=== PATIENT | male | born 1955 | race Two or more races ===

== ENCOUNTER 2017-06-24 14:24 | Inpatient (IN) | payer OTHER ==
[~2017-06-24] VITALS: Ht 177.8 cm; Wt 86.2 kg
== END 2017-07-05 16:53 | disposition home or self-care (01) | DRG 331 ==
LOC: EDUNIT# 06-27 13:15 → O/R 07-03 06:26 → SURG 07-03 11:00 → SURH 07-03 13:19 → SURG 07-03 16:36 → SURH 07-04 16:55 → SURG 07-04 17:36
PROVIDERS: Colon & Rectal Surgery
PROC: 0DTN4ZZ Resection of Sigmoid Colon, Percutaneous Endoscopic Approach (ICD-10-PCS; 2017-07-03)
PROC: 07TC4ZZ Resection of Pelvis Lymphatic, Percutaneous Endoscopic Approach (ICD-10-PCS; 2017-07-03)
PROC: 0DJD8ZZ Inspection of Lower Intestinal Tract, Via Natural or Artificial Opening Endoscopic (ICD-10-PCS; 2017-07-03)
PROC: 0DTP4ZZ Resection of Rectum, Percutaneous Endoscopic Approach (ICD-10-PCS; principal; 2017-07-03 11:00)
DX: C19 Malignant neoplasm of rectosigmoid junction (principal); Z85.048 Personal history of other malignant neoplasm of rectum, rectosigmoid junction, and anus

== ENCOUNTER 2017-07-02 08:55 | Day surgery (SDC) | payer OTHER | END 2017-07-02 14:30 | disposition home or self-care (01) | LOC: AMB-ENDOS 08:55 | DX: K64.1 Second degree hemorrhoids (principal); Z85.038 Personal history of other malignant neoplasm of large intestine ==

== ENCOUNTER 2018-08-15 05:30 | Day surgery (SDC) | payer OTHER | END 2018-08-15 09:00 | disposition home or self-care (01) | LOC: AMB-ENDOS 05:30 | DX: D12.4 Benign neoplasm of descending colon (principal); K64.2 Third degree hemorrhoids ==

== ENCOUNTER 2019-10-02 10:13 | Day surgery (SDC) | payer OTHER | END 2019-10-02 15:45 | disposition home or self-care (01) | LOC: AMB-ENDOS 10:13 | PROVIDERS: ATTEND Colon & Rectal Surgery | DX: K62.89 Other specified diseases of anus and rectum (principal) ==

== ENCOUNTER 2019-10-11 16:06 | Inpatient (IN) | payer OTHER ==
[~2019-10-11] VITALS: Ht 177.8 cm; Wt 90.7 kg
[2019-10-11] MEDS ORDERED: NORVASC2.5 M1 (16:18)
[2019-10-11] MEDS ORDERED: TENORMIN25 MG (16:18)
[2019-10-11] MEDS ORDERED: COZAAR100 MG (16:18)
[2019-10-11] MEDS ORDERED: PRILOSEC OTC20 MG (16:19)
[2019-10-11] MEDS ORDERED: SYMBICORT 16010.2 GM (16:19)
[2019-10-11] MEDS ORDERED: SINGULAIR 10MG10 MG (16:19)
--- NOTE | 2019-10-11 16:20 | NUR ---
SE RECIBE PTE ALERTA Y ORIENTADO X3,REFIERE TENER DOLOR ABDOMINAL,CONSTIPACION LLEVA SIN EVACUAR DESDE EL JUEVES,EL CRAIG [address] DE KRYS SE HICIERON JALYN COLONCOSPIA.
--- NOTE | 2019-10-11 17:45 | NUR ---
SE ORIENTA AL PACIENTE SOBRE EL TX. SE EXTRAEN MUESTRAS DE KEEGAN BAJO MEDIDAS ASEPTICAS SE ROTULAN Y ENVIAN AL LABORATORIO. SE ENTREGA FRASCO DE UA ROTULADO Y SE ORIENTA A COLECTAR LA MUESTRA DE FORMA CORRECTA. SE ENTREGA CONTRASTES PO Y SE ORIENTA A INGERIRLOS DE FORMA CORRECTA.
--- NOTE | 2019-10-11 23:18 | NUR ---
SE ORIENTA PTE SOBRE TX MEDICO EL CUAL REFIERE ENTENDER.SE CANALIZA BAJO MEDIDAS ASEPTICAS,SE ADMINISTRA MEDICAMENTO JESU ORDEN MEDICA.SE COLOCA FLUIDOS DE MANTENIMIENTO JESU ORDEN MEDICA DE DR MAN.
--- NOTE | 2019-10-12 07:16 | NUR ---
PACIENTE ALERTA Y ORIENTADO EN SLIM BELGICA ESFERAS, PRESENTA BUEN PATRON RESPIRATORIO Y JAIME DE DOLOR. RECIBIENDO 0.9% NSS A 200 ML/HR, VENOPUNCION PATENTE Y JAIME DE S/S DE FLEBITIS E INFILTRACION, PENDIENTE EVALUACION DE DR TOUS POR COLITIS.
== END 2019-10-14 18:34 | disposition home or self-care (01) | DRG 392 ==
LOC: ER 16:06 → SEC-K 10-12 10:29 → SURG 10-12 13:11
PROVIDERS: ADMIT Colon & Rectal Surgery; ATTEND Colon & Rectal Surgery
PROC: BW21Y0Z Computerized Tomography (CT Scan) of Abdomen and Pelvis using Other Contrast, Unenhanced and Enhanced (ICD-10-PCS; principal; 2019-10-12)
DX: K52.89 Other specified noninfective gastroenteritis and colitis (principal); K92.1 Melena; K59.09 Other constipation; I11.9 Hypertensive heart disease without heart failure; J45.20 Mild intermittent asthma, uncomplicated; Z03.818 Encounter for observation for suspected exposure to other biological agents ruled out; Z08 Encounter for follow-up examination after completed treatment for malignant neoplasm; Z85.048 Personal history of other malignant neoplasm of rectum, rectosigmoid junction, and anus